=== PATIENT | female | born 1945 | race African-American/Black ===

== ENCOUNTER 2021-06-17 18:06 | Emergency (ER) | payer MEDICARE ==
[~2021-06-17] VITALS: Ht 162.6 cm; Wt 81.6 kg
[2021-06-17] MEDS ORDERED: CASIRIVIMAB/IMDEVIMAB 10 ML in SODIUM CHLORIDE 0.9% 100 ML IV ONE (18:30)
[2021-06-17] MEDS ORDERED: SODIUM CHLORIDE 0.9% 100 ML ONE (18:37)
== END 2021-06-17 19:25 | disposition home or self-care (01) ==
LOC: ER 18:37
DX: U07.1 COVID-19 (principal); R05.9 Cough, unspecified; R53.83 Other fatigue; I10 Essential (primary) hypertension; E11.9 Type 2 diabetes mellitus without complications; E78.5 Hyperlipidemia, unspecified; Z85.3 Personal history of malignant neoplasm of breast
CPT/HCPCS: 99283; J7050